=== PATIENT | female | born 1970 | race African-American/Black ===

== ENCOUNTER 2024-03-23 17:22 | Observation (INO) | payer OTHER, SELFPAY ==
[2024-03-23] VITALS (9 sets, daily range): BP systolic 101–138; BP diastolic 61–78; BMI 30.7
--- NOTE | 2024-03-23 11:33 | ED.GENMED ---
History of Present Illness
<Cynthia Solitario PA-C - Last Filed: 03/23/24 16:50>
General
Chief Complaint: Abdominal Pain
Source: patient
Exam Limitations: none
Time Seen by Provider: 03/23/24 11:30
Nursing documentation reviewed up to this point in time: agreed with
Travel History
Have you had any contact with someone who has COVID-19?: No
Do you have any symptoms of coronavirus? Fever > 100 degrees, chills, cough, shortness of breath, sore throat, loss of taste or smell, muscle aches, or headache?: No
History of Present Illness
History of Present Illness:
54-year-old female with past medical history of hypertension, uterine fibroids presenting emergency department today with concerns of epigastric pain and a near syncopal episode. Patient states that she has had abdominal pain for the past 3 days.
Patient states that it would come and go but however the last day, it began to persist and is associated with nausea. Patient denies any vomiting. Patient denies any diarrhea. Patient does note some constipation with this. Patient denies any
history of abdominal surgeries other than . Patient states that she was at congregation today, when the pain became so severe that she became lightheaded, diaphoretic, and had to lie down, eventually the symptoms subsided and she never actually
lost consciousness. Patient denies any chest pain, shortness of breath. Patient denies any radiation of the pain to the back or to the chest. Patient denies any dysuria, hematuria.
Review of Systems
<PETAR Maciel Last Filed: 03/23/24 16:50>
Review of Systems
All Other Systems: ROS reviewed and negative except as documented in HPI and ROS
Phy Exam
<Cynthia Solitario PA-C - Last Filed: 03/23/24 16:50>
Physical Exam
Physical Exam:
Vitals: Vital signs are stable
General: Patient is well appearing and in no acute distress; non-toxic
Skin: Warm and dry, no rashes or lesions
Head: Normocephalic, atraumatic
Eyes: Sclera non-icteric. EOMs intact. PERRLA.
Cardiac: Regular rate and rhythm, no murmurs
Peripheral Vascular: No lower extremity swelling or edema, 2+ dorsalis pedis pulses bilaterally
Pulm: Normal respiratory effort, no abnormal lung sounds heard on exam, breath sounds equal bilateral
Abdomen: Epigastric tenderness to palpation with guarding, no rebound tenderness. Mild lower abdominal tenderness to palpation. No pulsatile abdominal mass.
Neuro: CN II-XII intact, no focal neurologic deficits.
Psychiatric: Appropriate mood and affect.
Course
<Cynthia Solitario PA-C - Last Filed: 03/23/24 16:50>
Orders/Labs/Results
Orders:
Orders
03/23/24 11:24
Electrocardiogram (*1) Urgent
Reason for Study: Abdominal Pain
EKG- Treatment ONCE
IV Insert/Care/Rem.- Treatment PRN
03/23/24 11:32
Complete Blood Count/With Diff Urgent
Comprehensive Metabolic Panel Urgent
Lipase Urgent
03/23/24 12:16
CT Abd/pelvis W Iv Cont Urgent
Comment:
Reason For Exam: diffuse abdominal pain
03/23/24 12:22
Troponin I Urgent
03/23/24 12:44
Ketorolac [Toradol] 15 mg IV NOW STA
Ondansetron Injectable [Zofran] 4 mg IV NOW STA
03/23/24 14:37
0.9% Sodium Chloride 1000 ml [Nss] 1,000 ml IV BOLUS
03/23/24 14:47
Lactic Acid Urgent
Lipase Urgent
Abnormal Lab Results
03/23/24
11:32
WBC 11.2 H 10^3/uL
(4.8-10.8)
MPV 11.6 H fL
(7.4-10.4)
Abs Immat Gran (auto) 0.1 H 10^3/uL
(0-0.05)
Absolute Neuts (auto) 8.9 H 10^3/uL
(1.4-6.5)
Neutrophils % 79.5 H %
(42.2-75.2)
Lymphocytes % 14.2 L %
(20.5-51.1)
Glucose 109 H mg/dl
(70-99)
03/23/24 11:32
03/23/24 11:32
Vital Signs
Initial and Last Documented VS:
Initial Vital Signs
Temp Pulse Resp BP Pulse Ox
99.0 F 81 24 121/75 99
03/23/24 11:29 03/23/24 11:29 03/23/24 11:29 03/23/24 11:29 03/23/24 11:29
Last Documented Vital Signs
Temp Pulse Resp BP Pulse Ox
98.2 F 91 19 138/73 99
03/23/24 14:48 03/23/24 16:45 03/23/24 16:45 03/23/24 16:00 03/23/24 16:45
<Clark Carlos, DO - Last Filed: 03/23/24 14:13>
Orders/Labs/Results
Orders:
Orders
03/23/24 11:24
Electrocardiogram (*1) Urgent
Reason for Study: Abdominal Pain
EKG- Treatment ONCE
IV Insert/Care/Rem.- Treatment PRN
03/23/24 11:32
Complete Blood Count/With Diff Urgent
Comprehensive Metabolic Panel Urgent
Lipase Urgent
03/23/24 12:16
CT Abd/pelvis W Iv Cont Urgent
Comment:
Reason For Exam: diffuse abdominal pain
03/23/24 12:22
Troponin I Urgent
03/23/24 12:44
Ketorolac [Toradol] 15 mg IV NOW STA
Ondansetron Injectable [Zofran] 4 mg IV NOW STA
03/23/24 14:37
0.9% Sodium Chloride 1000 ml [Nss] 1,000 ml IV BOLUS
03/23/24 14:47
Lactic Acid Urgent
Lipase Urgent
Abnormal Lab Results
03/23/24
11:32
WBC 11.2 H 10^3/uL
(4.8-10.8)
MPV 11.6 H fL
(7.4-10.4)
Abs Immat Gran (auto) 0.1 H 10^3/uL
(0-0.05)
Absolute Neuts (auto) 8.9 H 10^3/uL
(1.4-6.5)
Neutrophils % 79.5 H %
(42.2-75.2)
Lymphocytes % 14.2 L %
(20.5-51.1)
Glucose 109 H mg/dl
(70-99)
03/23/24 11:32
03/23/24 11:32
Vital Signs
Initial and Last Documented VS:
Initial Vital Signs
Temp Pulse Resp BP Pulse Ox
99.0 F 81 24 121/75 99
03/23/24 11:29 03/23/24 11:29 03/23/24 11:29 03/23/24 11:29 03/23/24 11:29
Last Documented Vital Signs
Temp Pulse Resp BP Pulse Ox
98.2 F 91 19 138/73 99
03/23/24 14:48 03/23/24 16:45 03/23/24 16:45 03/23/24 16:00 03/23/24 16:45
Chrislt;Cynthia Solitario PA-C - Last Filed: 03/23/24 16:50>
MDM/Problems Addressed
Differential Diagnosis Includes:
Differentials include pancreatitis, gastritis, cholecystitis, duodenitis, abdominal aortic aneurysm, vasovagal syncope, orthostatic hypotension
MDM/Problems Addressed:
Abdominal pain, near syncope
Chronic conditions affecting care:
Hypertension
<PETAR Maciel Last Filed: 03/23/24 16:50>
*Pulse Oximetry
Patient hypoxic: no
*EKG
Interpreted by ED Provider?: Yes
EKG Intrepretation Date: 03/23/24
Interpretation: normal
Heart Rate: 81
Rate: normal
Rhythm: sinus
Davey: normal axis
Interval: normal interval and normal QT interval
QRS Pattern: normal QRS
Ischemia: no ischemia
*Critical Care Note
Total Time (30-74mins, 75-104mins- exclusive of procedures): Not Applicable
Data Reviewed
Review of Other/Old Records Reveals: Records (No previous ER records to review) and Discharge Summary (No discharge summaries in [facility] to review)
Source: patient and records
<PETAR Maciel Filed: 03/23/24 16:50>
Patient Management
Escalation/DeEscalation of care consider admission/obs:
54-year-old female with past medical history of hypertension, uterine fibroids presenting emergency department today with concerns of epigastric pain and a near syncopal episode. Patient states that she has had abdominal pain for the past 3 days.
It became a lot worse today. Here in the emergency department, she is well-appearing but does have a lot of tenderness palpation exam with noticeable guarding. No palpable masses, no pulsatile abdominal mass. Here in emergency [place], her lab
work shows a mild leukocytosis but normal LFTs, kidney function intact, normal troponin, EKG shows normal sinus rhythm with no ischemic changes, lipase normal. CT scan did demonstrate a large area of mesenteric inflammation prompting us to add on a
repeat lipase and lactic acid, both of which were normal. Considering patient's continued persistent and persistent pain, and her abnormal CT findings, will admit for further evaluation and observation. Patient stable.
<Cynthia Solitario PA-C - Last Filed: 03/23/24 16:50>
Update Note
Update Note:
2:41 pm-- noted CT findings, patient states that she still has pain but improved from before, will add on repeat lipase, lactic acid, and start fluids
ED Attending Note
<Cynthia Solitario PA-C - Last Filed: 03/23/24 16:50>
-
Portions of this chart may have been created with voice recognition software.� Occasional wrong word or��sound alike� substitutions may have occurred due to the inherent limitations of voice recognition software.
<Clark Carlos DO - Last Filed: 03/23/24 14:13>
ED Attending Note
Patient seen and examined by attending physician: Yes
I performed the substantive portion of visit, reviewed & personally made and approve the management plan that is documented in note by myself or ASHLEY.: Yes
ED Attending Note:
Seen with PA examined independently agree with assessment and plan 54-year-old female limited past medical history presents acute onset of abdominal pain in her lower abdomen while at congregation feeling better now EKG troponin noted labs are noted CT
report noted patient states she is feeling better
Discharge Plan
Departure
Patient Disposition: Admit
Date of Disposition: 03/23/24
Time of Disposition: 15:36
Admit to: Med/Surg
Presentation/result/management discussed w/ accepting MD/DO: Hospitalist
Patient with high blood pressure during this ER visit?: No
Condition: Fair
Discharge Problem:
Abdominal pain, Colitis
Prescriptions:
No Action
latanoprost 0.005 % Drops
1 drp OPHTHALMIC (EYE) QPM
Referrals:
UNKNOWN - PT DOES,NOT KNOW [Family Provider] -
Interventions
Interventions:
*Risk Screen - Suicide Last Done: 03/23/24 11:22
*General Assessment Last Done: 03/23/24 11:22
*Neglect/Abuse Screening Last Done: 03/23/24 11:22
ED- Fall Risk Assessment Last Done: 03/23/24 11:22
*ED COVID-19 Vaccine History Last Done: 03/23/24 11:22
TE-Jkhdee-Koowdybwyi Assessment Last Done: 03/23/24 11:56
Discharge Date and Time
Print Language: MALAWIAN
[2024-03-23 11:50] LABS: % Basophils 0.2 % (0-2); % Eosinophils 0.2 % (0-6); % Immature Granulocytes 0.4 % (0-0.5); % Lymphocytes 14.2 % (20.5-51.1); % Monocytes 5.5 % (1.7-9.3); % Neutrophils 79.5 % (42.2-75.2); Absolute Immature Granulocytes 0.1 10^3/uL (0-0.05); Absolute Lymphocytes 1.6 10^3/uL (1.2-3.4); Absolute Monocytes 0.6 10^3/uL (0.1-0.6); Absolute Neutrophils 8.9 10^3/uL (1.4-6.5); Hematocrit 38.6 % (37.0-47.0); Hemoglobin 13.3 g/dL (12.0-16.0); Mean Corp Hgb Conc. 34.5 g/dL (33.0-37.0); Mean Corpuscular Hgb 30.5 pg (27.0-31.0); Mean Corpuscular Volume 88.5 fL (81.0-99.0); Mean Platelet Volume 11.6 fL (7.4-10.4); Nucleated Red Blood Cells % 0 %; Platelet Count 141 10^3/uL (130-400); Red Blood Cell Count 4.36 10^6/uL (4.20-5.40); Red Cell Dist. Width 12.5 % (11.5-14.5); White Blood Cell Count 11.2 10^3/uL (4.8-10.8)
[2024-03-23 12:00] LABS: ALT (SGPT) 20 U/L (0-35); AST (SGOT) 27 U/L (14-36); Albumin 4.1 g/dl (3.5-5.0); Alkaline Phosphatase 87 U/L (38-126); Blood Urea Nitrogen 15 mg/dl (7-17); Calcium 9.4 mg/dl (8.4-10.2); Carbon Dioxide 23 mmol/L (22-30); Chloride 105 mmol/L (98-107); Glucose 109 mg/dl (70-99); Potassium 4.4 mmol/L (3.5-5.1); Sodium 135 mmol/L (135-145); Total Bilirubin 0.7 mg/dl (0.2-1.3); Total Protein 7.2 g/dl (6.3-8.2); eGFR > 60.00
[2024-03-23 12:29] LABS: Lipase 179 U/L (23-300)
[2024-03-23 12:53] LABS: Troponin I < 0.012 ng/ml
[2024-03-23] MEDS: TORADOL 15 MG IV ×2 (12:55→20:24)
[2024-03-23] MEDS: NSS 1000 IV (14:48)
[2024-03-23 15:13] LABS: Lactic Acid 0.7 mmol/L (0.7-2.0)
[2024-03-23 15:19] LABS: Lipase 148 U/L (23-300)
--- NOTE | 2024-03-23 17:02 | HPS.HSE ---
Family Physician
-
Family Physician: NOT KNOW UNKNOWN - PT DOES
Chief Complaint
-
Abdominal pain x 3 days
History of Present Illness
A 54-year-old -[place] female who has past medical history of hypertension and hyperlipidemia who presents to the emergency department with onset of epigastric pain that started about 3 days ago.
Patient reported that she just had a meal that included salad, she also reported that she had drank a concoction that included coffee lying to reduce her risk of diabetes stating she developed this epigastric abdominal pain. She denies having any
diarrhea but feels she has constipation. She does not have any nausea or vomiting. The pain is intermittent and crampy. The pain radiates to the back She does report chills but no rigors and no traci fevers. She denies having any diarrhea.
Patient reported that she had extensive testing due to mild elevation in CEA. She had a CT colonoscopy which was negative for any mass. Denies any findings of diverticulitis. She has no personal or family history of CAD or CVA or PAD. Denies
family history of IBD.
She did recently travel from [facility] [place] visiting family members.
On arrival in the emergency department the patient was afebrile with a temp of 0.2, normotensive, normal pulse and oxygen saturation at 90%. ECG showed normal sinus rhythm at a rate of 81. CBC shows a leukocytosis to 11,000, normal hemoglobin of
13.3 and platelet count of 140. Chemistries were all within normal limits. Lactic acid normal. Troponin was negative. Lipase 148.
CT of the abdomen showed extensive 15 send the area of edema and inflammation of the mesentery and a 20 cm length of the proximal transverse colon with wall thickness and edema consistent with colitis.
Medical History
Past Medical History
Past Medical History: Reports HTN and Hypercholesterolemia
Past Surgical History: Reports None
Social History
Tobacco: Non-smoker
Alcohol: Occasional
Drug: None
Personal:
Living: With Family
Employment: Employed
Family History
Family History: Not pertinent
Allergies / Home Medications
Allergies reflects when Allergies were last updated in [employer].
Home Medications with original date entered in [employer]
Allergy/Medication List:
Allergies
Allergy/AdvReac Type Severity Reaction Status Date / Time
No Known Allergies Allergy Unverified 03/23/24 11:35
Home Medications
latanoprost 0.005 % eye drops 1 drp ophthalmic (eye) QPM 03/23/24
Amlodipine 5mg po daily
Rosuvastatin 10mg po daily
Review of Systems
-
History Source: Patient
Constitutional: Reports Chills
EENT: Reports No Symptoms
Respiratory: Reports No Symptoms
Cardiac: Reports No Symptoms
Abdomen/GI: Reports Abdominal Pain and Nausea
: Reports No Symptoms
Musculoskeletal: Reports No Symptoms
Skin: Reports No Symptoms
Neurological: Reports No Symptoms
Endocrine: Reports No Symptoms
Hematologic/Lymphatic: Reports No Symptoms
Psych: Reports No Symptoms
Physical Exam
Vital Signs
Vital Signs
Temp Pulse Resp BP Pulse Ox
98.2 F 91 19 138/73 99
03/23/24 14:48 03/23/24 16:45 03/23/24 16:45 03/23/24 16:00 03/23/24 16:45
Physical Exam
General: Well Developed, Well Nourished and No Apparent Distress
HEENT: NormoCephalic, Anicteric, Moist mucous membranes, Atraumatic and PERRLA
Respiratory: Clear
Cardiac: S1/S2 and Regular Rhythm
Breast: Deferred by me
GI: Soft, Non Tender, Non Distended and Normal Bowel Sounds
Rectal: Deferred by Provider
Genito-urinary: Deferred by me
Musculoskeletal: No Clubbing, No Cyanosis and No Edema
Skin: Warm
Neuro: AO x 3 and Nonfocal/grossly intact
Hematologic/Lymphatic: No Lymphadenopathy
Psych: Calm
Laboratory Results
-
03/23/24 11:32
03/23/24 11:32
Laboratory Results
Lactic Acid 0.7 mmol/L (0.7-2.0) 03/23/24 14:47
Total Bilirubin 0.7 mg/dl (0.2-1.3) 03/23/24 11:32
AST 27 U/L (14-36) 03/23/24 11:32
ALT 20 U/L (0-35) 03/23/24 11:32
Alkaline Phosphatase 87 U/L (38-126) 03/23/24 11:32
Troponin I < 0.012 ng/ml 03/23/24 12:22
Lipase 148 U/L (23-300) 03/23/24 14:47
Data Reviewed
-
CT Scan: Report Reviewed by me
Medical Tests (Nuc Med, Echo, EKG etc): Image Personally Visualized and interpreted
Lab Data: Labs Reviewed by me
Old Records: Reviewed
Impression/Plan
-
IMPRESSION:
54 y.o female with acute abdominal pain.
PLAN:
Colitis - Epigastric abdominal pain with nausea. CT scan shows 15 cm area of edema and inflammatory stranding in the upper abdominal mesentery at and below the level of the pancreas. Despite this, there is an approximately 20 cm in length area of
bowel wall thickening and incomplete distention in the proximal transverse colon consistent with colitis
Unclear if the edema and inflammatory changes in the upper mesentery are secondary to this colitis or pancreatitis. However lipase is normal. LFTs are normal. Denies ETOH. Little to no risk factors for mesenteric ischemia. Infectious vs
inflammatory colitis.
- admit to [facility]
- suspect acute colitis of infectious origin, so will treat with unasyn and transition to augmentin
- advance diet as tolerated, serial exams
- pain control and antiemetics
- check esr, crp
- if no improvement, consider GI consultation
- trend lipase for now
- bowel prep
DVT PPX w/ lovenox sq
Full Code
[2024-03-23] MEDS: LR 1000 IV ×2 (18:21→19:53)
--- NOTE | 2024-03-23 18:35 | CON.CRS ---
Consultation
-
Performing Provider: Maximiliano Bonds MD
Reason for Consultation: colitis
Medical History
-
History of Present Illness:
Patient is a 45-year-old female with PMH of HTN and HLD who presents with 2 to 3 days of epigastric to periumbilical abdominal pain. This is never happened to her before. The pain got worse 1 day prior to presenting to the [place] ED. She
denies any nausea or vomiting, fevers, CP/SBO, or urinary complaints. She denies any diarrhea or blood in her stool. She has been somewhat constipated, but had a BM this morning. She had a colonoscopy in [facility] 4 to 5 years ago and reports that
is normal. She had a virtual colonoscopy 1 month ago in [place] for a slightly elevated CEA. She reports that that was normal as well. She lives in [facility] and is here in [place] for conference.
Past Medical History
Past Medical History: Other (HTN, HLD, hemorrhoids)
Past Surgical History: Other (, hysterectomy (for fibroids) 2018, hemorrhoid surgery 2019)
Social History
Tobacco: Non-Smoker
Alcohol: Occasional (Socially)
Drug: None
Living: With Family
Family History
Family History: Other (Denies any CRC or colon issues in the family)
Allergies / Home Medications
Allergy/AdvReac Type Severity Reaction Status Date / Time
No Known Allergies Allergy Unverified 03/23/24 11:35
�Medication �Instructions �Recorded �Confirmed �Type
amlodipine 5 mg tablet (Norvasc) 5 mg PO DAILY 03/23/24 03/23/24 History
latanoprost 0.005 % eye drops 1 drp BOTH EYES QPM 03/23/24 03/23/24 History
melatonin 5 mg tablet 5 mg PO HSPRN PRN sleep 03/23/24 03/23/24 History
rosuvastatin 10 mg tablet 10 mg PO QPM 03/23/24 03/23/24 History
Review of Systems
-
All other systems: Negative unless noted
A 10 point review of systems was completed, and was negative except as per HPI.
Physical Exam
Vital Signs
Temp 98.2 F 03/23/24 14:48
Pulse 86 03/23/24 17:30
Resp Rate 16 03/23/24 17:30
Blood pressure 125/67 03/23/24 17:00
SaO2 97 03/23/24 17:30
Lab Results / Allergies
03/23/24 11:32
03/23/24 11:32
WBC 11.2 10^3/uL (4.8-10.8) H 03/23/24 11:32
Hgb 13.3 g/dL (12.0-16.0) 03/23/24 11:32
Hct 38.6 % (37.0-47.0) 03/23/24 11:32
Plt Count 141 10^3/uL (130-400) 03/23/24 11:32
Abs Immat Gran (auto) 0.1 10^3/uL (0-0.05) H 03/23/24 11:32
Neutrophils % 79.5 % (42.2-75.2) H 03/23/24 11:32
Allergy/AdvReac Type Severity Reaction Status Date / Time
No Known Allergies Allergy Unverified 03/23/24 11:35
Physical Exam
General: Well Developed, Well Nourished, No Apparent Distress and Comfortable
HEENT: Normocephalic and Atraumatic
Respiratory: Non Labored Respirations
GI: Soft, Non Distended and Tender (Mildly to moderately TTP in the periumbilical to epigastric/RUQ, no rebound or guarding)
Skin: Warm and Dry
Neuro: AO x 3
Data Reviewed
-
CT Scan: Image Personally Visualized and interpreted, Discussed with Physician, Discussed with Patient and Discussed with Family
Labs: Labs Reviewed by me, Discussed with Patient and Discussed with Family
Assessment / Plan
-
54-year-old female with PMH of HTN, HLD who presents with 2 to 3 days of worsening periumbilical to epigastric abdominal pain associated with constipation; last colonoscopy 4 to 5 years ago in [place] reported as normal, virtual colonoscopy 1 month
ago reported as normal; in the ED WBC 11.2, Hb 13.3, lipase normal, Cr 0.6, CT showing mesenteric edema of the transverse colon associated with thickening of the proximal to mid transverse colon concerning for colitis
Afebrile, VSS
� Differential for colitis includes infectious versus inflammatory versus ischemic; due to her age and lack of cardiovascular risk factors, ischemic colitis is less likely
� Recommend stool studies, CRP and fecal calprotectin
� Recommend bowel rest with n.p.o. and IVF
� Continue IV Unasyn
� Continue DVT PPx with Lovenox
� OOB/IS
� No acute surgical intervention; will monitor for symptomatic improvement with nonoperative measures; would recommend a colonoscopy in 6 to 8 weeks to evaluate the area endoscopically
� Appreciate hospitalist
[2024-03-23] MEDS: UNASYN IV (18:39)
[2024-03-23] MEDS: LOVENOX 40 MG SC (19:53)
[2024-03-23] MEDS: CRESTOR 10 MG PO (23:25)
[2024-03-24] MEDS: UNASYN IV ×5 (00:19→23:24)
[2024-03-24] MEDS: XALATAN OPHTHALMIC SOLUTION 1 DROP BOTH EYES ×2 (00:20→18:13)
[2024-03-24 07:00] VITALS: BP 115/83
--- NOTE | 2024-03-24 09:24 | W.PN.CRS1 ---
Today's Communication / Plan
-
full liquids
Assessment/Plan
-
54-year-old female with PMH of HTN, HLD who presents with 2 to 3 days of worsening periumbilical to epigastric abdominal pain associated with constipation; last colonoscopy 4 to 5 years ago in [place] reported as normal, virtual colonoscopy 1 month
ago reported as normal; in the ED WBC 11.2, Hb 13.3, lipase normal, Cr 0.6, CT showing mesenteric edema of the transverse colon associated with thickening of the proximal to mid transverse colon concerning for colitis
Afebrile, VSS
� Differential for colitis includes infectious versus inflammatory versus ischemic; due to her age and lack of cardiovascular risk factors, ischemic colitis is less likely
� Recommend stool studies, CRP and fecal calprotectin
� Advance diet to full liquids.
� Continue IV Unasyn
� Continue DVT PPx with Lovenox
� OOB/IS
� No acute surgical intervention; will monitor for symptomatic improvement with nonoperative measures; would recommend a colonoscopy in 6 to 8 weeks to evaluate the area endoscopically
� Appreciate hospitalist
Subjective Data
Subjective Data
Date of Service: March 24, 2024
Patient states she feels well. She has no nausea or vomiting. She has no bleeding in her stool.
Objective Data
-
Vital Signs
Temp Pulse Resp BP Pulse Ox
99.4 F 97 18 115/83 99
03/24/24 07:00 03/24/24 07:00 03/24/24 07:00 03/24/24 07:00 03/24/24 07:00
Intake & Output
03/23/24 03/24/24 03/25/24
06:59 06:59 06:59
Intake Total 100 / 100
Balance 100 / 100
Intake:
Oral fluids 100 / 100
Physical Exam
-
General: No Acute Distress and AOx3
Abdomen: Soft, Non Distended and Non Tender
Skin: Warm and Dry
[2024-03-24] MEDS: LR 1000 IV (09:43)
[2024-03-24 09:51] LABS: Hematocrit 34.1 % (37.0-47.0); Hemoglobin 11.3 g/dL (12.0-16.0); Mean Corp Hgb Conc. 33.1 g/dL (33.0-37.0); Mean Corpuscular Hgb 30.5 pg (27.0-31.0); Mean Corpuscular Volume 91.9 fL (81.0-99.0); Mean Platelet Volume 11.5 fL (7.4-10.4); Platelet Count 116 10^3/uL (130-400); Red Blood Cell Count 3.71 10^6/uL (4.20-5.40); Red Cell Dist. Width 12.6 % (11.5-14.5); White Blood Cell Count 10.9 10^3/uL (4.8-10.8)
[2024-03-24] MEDS: TORADOL 15 MG IV ×2 (09:56→17:04)
[2024-03-24 10:54] LABS: Erythrocyte Sed Rate 53 mm/hour (0-20)
[2024-03-24 11:51] LABS: Blood Urea Nitrogen 9 mg/dl (7-17); Calcium 8.6 mg/dl (8.4-10.2); Carbon Dioxide 27 mmol/L (22-30); Chloride 106 mmol/L (98-107); Estimated Creatinine Clearance 123 ml/min; Glucose 89 mg/dl (70-99); Lipase 132 U/L (23-300); Potassium 3.8 mmol/L (3.5-5.1); Sodium 137 mmol/L (135-145); eGFR > 60.00
[2024-03-24 15:00] VITALS: BP 121/72
--- NOTE | 2024-03-24 15:51 | CM ---
Patient seen bedside with three children, initial assessment completed. Patient resides in a multiple level home, three steps to enter. Patient denies DME, VN, or SNF. Patient confirms PCP Dr. Alarcon, pharmacy used [facility] in [place], [place]. Patient
reports she does have prescription coverage through insurance, denies food insecurities at home. OBS status reviewed, refused to sign, placed in patients chart. CM will continue to follow for all discharge planning needs.
Plan; home no needs likely.
--- NOTE | 2024-03-24 16:26 | W.PN.HOSP.TC ---
Today's Communication/Plan
-
stool test if have diarrhea
can stop further IVF
continue liquid diet
continue abx
possible d/c tomorrow
Assessment / Plan
Assessment / Plan
1. Acute transverse colitis
-presumed acute infectious colitis, low likelihood of ischemic/IBD in nature
-maintain on empiric abx unasyn
-stool studies ordered, patient feel constipated, holding on giving laxatives to induce iatrogenic diarrhea.
-on [place] diet
-CRS following and help appreciated
2. Essential HTN
- continue on norvasc
3. HLD
-maintain on crestor
DVT PPX - lovenox
Full code
Anticipated Discharge: 24 - 48 hours
Subjective/Interval History
-
Date of Service: March 24, 2024
patient feels constipated, no diarrhea
abd pain is better
no n/v
Objective Data
-
Labs:
Laboratory Results
03/24/24 03/24/24
08:56 11:19
WBC 10.9 H
Hgb 11.3 L
Hct 34.1 L
Plt Count 116 L
Sodium Cancelled 137
Potassium Cancelled 3.8
Chloride Cancelled 106
Carbon Dioxide Cancelled 27
BUN Cancelled 9
Creatinine Cancelled 0.6
Glucose Cancelled 89
Calcium Cancelled 8.6
Vital Signs:
Vital Signs
Temp Pulse Resp BP Pulse Ox
98.5 F 85 18 121/72 99
03/24/24 15:00 03/24/24 15:00 03/24/24 15:00 03/24/24 15:00 03/24/24 15:00
I&O
03/23/24 03/24/24 03/25/24
06:59 06:59 06:59
Intake Total 100 / 100
Balance 100 / 100
Review of Systems
-
Respiratory: Reports No Symptoms
Cardiac: Reports No Symptoms
Abdomen/GI: Reports Abdominal Pain and Nausea; Denies Vomiting
Physical Exam
-
General: No Apparent Distress and Comfortable
HEENT: Negative Oxygen
Respiratory: Clear to Auscultation
Cardiac: Regular Rhythm and S1/S2; Negative Murmur or Rub
GI: Soft, Nontender and Nondistended
Musculoskeletal: No Edema
Neuro: Awake, Alert, Oriented, No Motor Deficits and Nonfocal/Grossly Intact
Psych: Calm
[2024-03-24] MEDS: CRESTOR 10 MG PO (18:12)
[2024-03-24] MEDS: LOVENOX 40 MG SC (18:12)
[2024-03-24 23:04] VITALS: BP 138/86
[2024-03-25] MEDS: UNASYN IV ×2 (05:47→11:28)
[2024-03-25] MEDS: TORADOL 15 MG IV ×2 (05:57→13:20)
[2024-03-25 07:04] VITALS: BP 131/94
[2024-03-25 07:58] LABS: Hematocrit 33.8 % (37.0-47.0); Hemoglobin 11.1 g/dL (12.0-16.0); Mean Corp Hgb Conc. 32.8 g/dL (33.0-37.0); Mean Corpuscular Volume 91.4 fL (81.0-99.0); Mean Platelet Volume 11.2 fL (7.4-10.4); Platelet Count 127 10^3/uL (130-400); Red Cell Dist. Width 12.5 % (11.5-14.5)
[2024-03-25 08:17] LABS: Blood Urea Nitrogen 8 mg/dl (7-17); Calcium 8.9 mg/dl (8.4-10.2); Carbon Dioxide 25 mmol/L (22-30); Chloride 106 mmol/L (98-107); Estimated Creatinine Clearance 123 ml/min; Glucose 85 mg/dl (70-99); Potassium 4.2 mmol/L (3.5-5.1); Sodium 139 mmol/L (135-145); eGFR > 60.00
[2024-03-25] MEDS: NORVASC 5 MG PO (08:23)
--- NOTE | 2024-03-25 09:51 | W.PN.CRS1 ---
Today's Communication / Plan
-
low residue diet
Assessment/Plan
-
54-year-old female with PMH of HTN, HLD who presents with 2 to 3 days of worsening periumbilical to epigastric abdominal pain associated with constipation; last colonoscopy 4 to 5 years ago in [place] reported as normal, virtual colonoscopy 1 month
ago reported as normal; in the ED WBC 11.2, Hb 13.3, lipase normal, Cr 0.6, CT showing mesenteric edema of the transverse colon associated with thickening of the proximal to mid transverse colon concerning for colitis
Afebrile, VSS
� Differential for colitis includes infectious versus inflammatory versus ischemic; due to her age and lack of cardiovascular risk factors, ischemic colitis is less likely
� Advance diet to low residue.
� Continue IV Unasyn
� Continue DVT PPx with Lovenox
� OOB/IS
� No acute surgical intervention; will monitor for symptomatic improvement with nonoperative measures; would recommend a colonoscopy in 6 to 8 weeks to evaluate the area endoscopically by her GI doctor in [place]
� Okay for discharge if tolerates a low residue diet. She will follow up in [place].
Subjective Data
Subjective Data
Date of Service: March 25, 2024
Patient states she feels much improved today. She has no nausea or vomiting. She is having bowel movements. She denies diarrhea. She is tolerating a diet.
Objective Data
-
Vital Signs
Temp Pulse Resp BP Pulse Ox
97.9 F 81 16 131/94 98
03/25/24 07:04 03/25/24 07:04 03/25/24 07:04 03/25/24 08:23 03/25/24 07:04
Intake & Output
03/24/24 03/25/24 03/26/24
06:59 06:59 06:59
Intake Total 100 / 100 2340 / 2340
Balance 100 / 100 2340 / 2340
Intake:
Oral fluids 100 / 100 1440 / 1440
IV fluids (Total) 700 / 700
IV piggybacks 200 / 200
Other:
Number of approximated MODERATE 2
amounts of urine
Lab Results
03/25/24 07:36
03/25/24 07:36
Physical Exam
-
General: No Acute Distress and AOx3
Abdomen: Soft, Non Tender and Tender
Skin: Warm and Dry
--- NOTE | 2024-03-25 10:18 | W.PN.HOSP.TC ---
Today's Communication/Plan
-
await CRS to see patient
possible discharge after
Assessment / Plan
Assessment / Plan
1. Acute transverse colitis
-presumed acute infectious colitis, low likelihood of ischemic/IBD in nature
-currently on empiric abx Unasyn
-stool studies collected, ova/parasite is neg. culture remains
-CRS following and help appreciated
-Clinically feeling better and pain is improved, will discharge on oral augmentin
-will contact patient if found to have true pathologic organism on stool studies
-patient to continue on LR diet for 1 week
-F/u with GI in office in [place] for colonoscopy
2. Essential HTN
- continue on norvasc
3. HLD
-maintain on crestor
DVT PPX - lovenox
Full code
More than 30 minutes spent in discharge including
Final examination of the patient
Summarizing hospital stay
Instructions for continuing care to all relevant caregivers
Preparation of discharge records, prescriptions, and referral forms
Total time spent (in minutes): 39 mins
Anticipated Discharge: Today
Subjective/Interval History
-
Date of Service: March 25, 2024
some upper abd pain
no nausea/vomiting
afebrile overnight
Objective Data
-
Labs:
Laboratory Results
03/25/24
07:36
WBC 9.0
Hgb 11.1 L
Hct 33.8 L
Plt Count 127 L
Sodium 139
Potassium 4.2
Chloride 106
Carbon Dioxide 25
BUN 8
Creatinine 0.6
Glucose 85
Calcium 8.9
Vital Signs:
Vital Signs
Temp Pulse Resp BP Pulse Ox
97.9 F 81 16 131/94 98
03/25/24 07:04 03/25/24 07:04 03/25/24 07:04 03/25/24 08:23 03/25/24 07:04
I&O
03/24/24 03/25/24 03/26/24
06:59 06:59 06:59
Intake Total 100 / 100 2340 / 2340
Balance 100 / 100 2340 / 2340
Review of Systems
-
Respiratory: Reports No Symptoms
Cardiac: Reports No Symptoms
Abdomen/GI: Reports Abdominal Pain; Denies Nausea or Vomiting
Physical Exam
-
General: No Apparent Distress and Comfortable
HEENT: Negative Oxygen
Respiratory: Clear to Auscultation
Cardiac: Regular Rhythm and S1/S2; Negative Murmur or Rub
GI: Soft, Nondistended and Tender (Upper abd)
Musculoskeletal: No Edema
Neuro: Awake, Alert, Oriented, No Motor Deficits and Nonfocal/Grossly Intact
Psych: Calm
[2024-03-25] MEDS: MIRALAX 17 GRAMS PO (10:22)
--- NOTE | 2024-03-25 12:16 | CM ---
CM reviewed chart and noted dc order
Bedside meeting with pt and SO
No dc needs noted
SO will transport home
Discharge Disposition- home no needs
[2024-03-25 13:44] VITALS: BP 139/84
--- NOTE | 2024-03-25 17:11 | W.DCSUMMARY ---
Discharge Summary
Discharge Data
Date of Admission: 03/23/24
Date of Discharge: 03/25/24
-
Pending Results: No
Hospital Course
Discharging Physician : Dr Jason Perrin
Disposition : To home
Primary care physician : Unknown
Principal Discharge diagnosis :
Acute transverse colitis, presumed infectious
Chronic Discharge diagnosis :
Essential hypertension
Hyperlipidemia
Obesity
Hospital Course :
Patient is a 54-year-old female with no mentioned past medical history came to ER with new onset of upper abdominal pain. Patient denied any associated nausea vomiting fever episode. CT renal pelvis done in ER showing patient having proximal
transverse colitis. This was felt to be infectious in nature as patient does not have any history of vascular disease no reported blood in stool. Inflammatory bowel disease were felt less likely as well. Patient was started on empiric antibiotic.
Stool studies were sent and were negative for ova parasite and blood culture. Patient had some improvement in symptoms with IV antibiotic therapy. Tool Mechanic surgeon following along during the course. Patient was transition to oral Augmentin
therapy at discharge. Patient advised to follow-up with low residue diet for 1 week. Patient to follow-up with linen folder and [place] for routine follow-up colonoscopy.
Important imaging findings :
None
Procedure findings :
None
Discharge Plan
-
Patient Disposition: Home (Routine Discharge)
Discharge Diagnosis/Procedures: Acute transverse colitis, presumed infectious
Condition: Fair
Diet: Low Residue
Activity: As tolerated
Driving Restrictions: As prior to admission
Bathing Restrictions: OK to Shower
Others Tests: You will need a colonoscopy in 6-8 weeks. You will need to discuss and schedule this with your GI doctor in [place].
Referrals:
UNKNOWN - PT DOES,NOT KNOW [Family Provider] -
Prescriptions:
New
polyethylene glycol 3350 [Miralax] 17 gram powder in packet
17 g PO DAILY Qty: 30 0RF
amoxicillin-pot clavulanate 875-125 mg tablet
1 tab PO BID Qty: 14 0RF
Visbiome 112.5 billion cell capsule
2 cap PO DAILY Qty: 10 0RF
tramadol 50 mg tablet
50 mg PO Q8H PRN (Reason: Sev pain) Qty: 10 0RF
Rx Instructions:
Half tablet for mod pain
Continued
latanoprost 0.005 % Drops
1 drp BOTH EYES QPM
amlodipine [Norvasc] 5 mg Tablet
5 mg PO DAILY
rosuvastatin 10 mg Tablet
10 mg PO QPM
melatonin 5 mg Tablet
5 mg PO HSPRN PRN (Reason: sleep)
Discharge Orders:
Discharge Patient (As Directed); Ordered 03/25/24
Ordered By: Jason Perrin
Discharge Date and Time
Discharge Date/Time: 03/25/24 14:00
Print Language: YORUBA
[2024-03-27 15:56] LABS: Calprotectin, Fecal <5 ug/g (<=49)
== END 2024-03-25 14:00 | disposition home or self-care (01) ==
LOC: 4 WEST ACU 17:22
PROVIDERS: Physician Assistant; ADMITTING PHYSICIAN Internal Medicine; ATTENDING PHYSICIAN Hospitalist; EMERGENCY PHYSICIAN Emergency Medicine; OTHER PHYSICIAN Surgery
DX: A09 Infectious gastroenteritis and colitis, unspecified (principal); R10.30 Lower abdominal pain, unspecified; I10 Essential (primary) hypertension; R55 Syncope and collapse; K59.00 Constipation, unspecified; R42 Dizziness and giddiness; K42.9 Umbilical hernia without obstruction or gangrene; K63.89 Other specified diseases of intestine; E66.9 Obesity, unspecified; R61 Generalized hyperhidrosis; E78.00 Pure hypercholesterolemia, unspecified; D72.829 Elevated white blood cell count, unspecified; Z87.19 Personal history of other diseases of the digestive system; Z68.30 Body mass index [BMI] 30.0-30.9, adult
CPT/HCPCS: 74177; 80048; 80053; 83605; 83690; 83993; 84484; 85025; 85027; 85652; 86140; 87045; 87046; 87328; 87329; 87427; 93005; 96361; 96374; 99285; G0378; Q9967